=== PATIENT | male | born 2000 | race Caucasian/White ===

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

== ENCOUNTER 2021-04-27 11:35 | Emergency (ER) | payer BC, SELFPAY ==
[2020-10-21 10:56] VITALS: BMI 28.0
[2021-04-27 11:36] VITALS: BP 153/91; PULSE 88; RESP 16; TEMP 36; O2SAT 99; BMI 28.1
--- NOTE | 2021-04-27 11:45 | ED.VIS.LOWEX ---
HPI History of Present Illness Chief Complaint: Lower Extremity Injury Informant: patient Narrative Narrative: 21-year-old male sustained a right great toe plantar laceration 30 minutes prior to arrival when he cut it on a piece of metal outside. Bleeding controlled. Tetanus Immunization: Unknown [facility] Medical History ADHD Asthma Chronic neck and back pain Pyloric stenosis Home Medications albuterol sulfate 1 puff INHALATION Q4H PRN PRN 09/11/13 [History Last Taken Unknown] dextroamphetamine-amphetamine 10 mg PO QHS 09/11/13 [History Last Taken 09/10/13] dextroamphetamine-amphetamine 25 mg PO BREAKFAST 09/11/13 [History Last Taken 09/11/13] beclomethasone dipropionate 40 mcg/actuation aerosol inhaler 40 mcg INHALATION PRN PRN 10/21/20 [History Last Taken Unknown] cephalexin 500 mg PO Q6 #20 capsule 04/27/21 [Rx Last Taken Unknown] Allergy/AdvReac Type Severity Reaction Status Date / Time amoxicillin [Amoxicillin] Allergy Rash Verified 04/27/21 11:38 capsaicin Allergy unknown Verified 04/27/21 11:38 ANAGESIC LOTION Allergy Hives Uncoded 04/27/21 11:38 Family History Other COPD (chronic obstructive pulmonary disease) Diabetes Hypertension Kidney disease Surgical History lymph node removed Social History Smoking Status: Never smoker alcohol intake: never ROS ROS ED Constitutional Constitutional ED: Denies chills or weight loss Eyes Eyes: Denies change in vision or diplopia ENT ENT ED: Denies ear pain, rhinorrhea or sore throat Cardiovascular Cardiovascular: Denies chest pain, orthopnea, palpitations or racing heartbeat Respiratory/Chest Respiratory/Chest: Denies cough, dyspnea or orthopnea Gastrointestinal Gastrointestinal: Denies abdominal pain, diarrhea, nausea or vomiting Genitourinary Genitourinary ED: Denies dysuria, hematuria or urinary frequency Musculoskeletal Musculoskeletal: Denies arthralgias or myalgias Integumentary Reports other Details: Right foot laceration ; Denies abscess or rash Neurologic Neurologic: Denies headache(s) or weakness Psychiatric Psychiatric: Denies anxiety, depression, suicidal ideation or suicidal thoughts Endocrine Endocrinology: Denies polydipsia, polyphagia or polyuria Allergic/Immunologic Allergic/Immunologic ED: Denies mouth swelling, tongue swelling or urticaria EXAM Physical Exam Const Vital Signs: 04/27/21 11:36 Temperature 96.8 F L Temperature Source Temporal Pulse Rate 88 Respiratory Rate 16 Blood Pressure 153/91 H Blood Pressure Mean 111 Pulse Ox 99 Oxygen Delivery Method Room Air Positive well nourished and well developed General Appearance ED: well developed HEENT Reports normocephalic, head/scalp atraumatic and moist mucous membranes Eyes PERRL and EOMs intact bilaterally Neck no lymphadenopathy, supple and no JVD Resp normal respiratory effort and clear to auscultation bilaterally Cardio regular rate, regular rhythm and no murmurs GI normal to inspection, nondistended, normoactive bowel sounds and non-tender Palpation: soft Back/Spine no CVA tenderness and normal ROM Extremity normal to inspection General Extremety ED: Negative for edema General Extremity: Negative for edema Neuro oriented x3 and CN's II-XII intact bilaterally Sensorium / Orientation: alert Motor Exam: strength 5/5 throughout Psych mental status grossly normal Mood & Affect: Negative for depressed or tearful Skin no rashes or lesions noted Skin Narrative: There is a 2 cm linear laceration over the plantar aspect of the right MTP joint. No obvious tendon damage. Neurovascular intact. MDM MDM MDM Narrative Medical decision making narrative: Patient had let applied. I then locally anesthetized the wound with 1% lidocaine. Washed with Shur-Clens and explored. Closed using a total of 6 simple interrupted 4-0 Ethilon sutures. Neurovascular intact pre and post. No obvious tendon injury noted. Patient was placed on Keflex. I explicitly advised against swimming on vacation. Tetanus will be updated. Discharge Plan Triage Chief Complaint: Lower Extremity Injury ED Provider: Vladimir Cifuentes Dx/Rx/DC Orders Clinical Impression: Foot laceration Instructions: ED Laceration, Foot: All Closures Prescriptions: New cephalexin [cephalexin] 500 MG capsule 500 mg PO Q6 Qty: 20 RF: 0 No Action beclomethasone dipropionate 40 mcg/actuation aerosol 40 mcg INHALATION PRN PRN (Reason: Wheezing) RF: 0 dextroamphetamine-amphetamine 10 MG tablet 10 mg PO QHS RF: 0 dextroamphetamine-amphetamine 20 MG tablet 25 mg PO BREAKFAST RF: 0 albuterol sulfate 1 PUFF inhaler 1 puff inhalation Q4H PRN PRN (Reason: Shortness Of Breath) RF: 0 Primary Care Provider: Helene Grigsby Referrals: Helene Grigsby MD [Primary Care Provider] - 10 Day for suture removal
[2021-04-27] MEDS: Lidocaine 1% (20 ml mdv) 20 ML Vial INFILT (12:03)
[2021-04-27] MEDS: Lidocaine/Epi/Tetracaine 50 ML 1 APPLIC TOPICAL (12:03)
[2021-04-27] MEDS: Diphth,Pertuss(Acell),Tet Vac 0.5 ML Vial IM (13:19)
== END 2021-04-27 13:58 | disposition home or self-care (01) ==
PROVIDERS: Emergency Provider Emergency Medicine; PCP Family Medicine
DX: S91.111A Laceration without foreign body of right great toe without damage to nail, initial encounter (principal); W26.8XXA Contact with other sharp object(s), not elsewhere classified, initial encounter; Y93.9 Activity, unspecified; Y92.9 Unspecified place or not applicable; F90.9 Attention-deficit hyperactivity disorder, unspecified type; G89.29 Other chronic pain; J45.909 Unspecified asthma, uncomplicated; Z79.899 Other long term (current) drug therapy
CPT/HCPCS: 12001; 90715; 99285

== ENCOUNTER → 2025-04-24 | Outpatient (CLI) | payer OTHER, SELFPAY ==
[2025-04-24 18:14] LABS: Cholesterol 266 mg/dL (<=200); Glucose 81 mg/dL (70-99); High Density Lipoprotein 45 mg/dL; Low Density Lipoprotein Calc. 203 mg/dL; Triglycerides 93 mg/dL; Very Low Density Lipoprotein 19 mg/dL (5-40); cholesterol:hdl ratio screen 5.91
== END | disposition home or self-care (01) ==
PROVIDERS: PCP Family Medicine; Visit Provider Family Medicine
DX: Z00.00 Encounter for general adult medical examination without abnormal findings (principal)
CPT/HCPCS: 36415; 80061; 82947